=== PATIENT | male | born 1935 | race African-American/Black ===

== ENCOUNTER 2018-01-08 13:29 | Inpatient (IN) | payer MEDICARE ==
[~2018-01-08] VITALS: Ht 188 cm; Wt 91.2 kg
[2018-01-08] MEDS ORDERED: VANCOMYCIN 1GM/NS 250 ML 250 ML IV STA (14:43)
[2018-01-08] MEDS ORDERED: PIPER-TAZ 3.375 GM 50 ML IV STA (14:43)
--- NOTE | 2018-01-08 15:02 | Diagnostic Imaging Report ---
PROCEDURE:X-RAY RIGHT FOOT, COMPLETE COMPARISON:None. INDICATIONS:OSTEOMYLITIS FINDINGS: 3 views of the right foot (AP, lateral, and oblique) There has been amputation through the diaphysis of the fifth metatarsal. Mild regional osteopenia of the fourth metatarsal head. Punctate radiodensities overlying the proximal phalanx of the second digit may be related to old trauma. Degenerative changes of the midfoot. Extensive vascular calcifications. CONCLUSION: Status post amputation of the fifth digit. Mild regional osteopenia of the fourth metatarsal head raises suspicion for osteomyelitis. MRI of the forefoot (with and without contrast) may be used for confirmation. Dictated by: Mac Gandhi M.D. on 01/08/2018 at 15:03 Electronically approved by: Mac Gadnhi M.D. on 01/08/2018 at 15:03
[2018-01-08] MEDS ORDERED: NIFEDIPINE 10 MG CAP PO ONE (15:30)
[2018-01-08 16:06] LABS: BASOPHILS % 0.4 % (0.0-1.0); EOSINOPHILS # (AUTO) 0.2 (0.0-0.4); EOSINOPHILS % 2.1 % (0.0-6.0); HEMOGLOBIN 11.7 g/dL (14.0-18.0); LYMPHOCYTES # (AUTO) 2.1 (1.0-3.2); LYMPHOCYTES % 28.9 % (18.0-39.1); MEAN CORPUSCULAR HEMOGLOBIN 28.5 pg (28-32); MEAN CORPUSCULAR HGB CONC 34.4 g/dL (31-35); MEAN CORPUSCULAR VOLUME 82.7 fL (81-99); MONOCYTES # (AUTO) 1.1 (0.2-0.8); MONOCYTES % 14.7 % (4.4-11.3); NEUTROPHILS # (AUTO) 3.9 (2.1-6.9); NEUTROPHILS % 53.3 % (38.7-80.0); PLATELET COUNT 174 x10e3/uL (140-360); RED BLOOD COUNT 4.11 x10e6/uL (4.3-5.7); RED CELL DISTRIBUTION WIDTH 15.6 % (11.7-14.4)
--- NOTE | 2018-01-08 16:07 | Diagnostic Imaging Report ---
PROCEDURE: A single AP view of the chest. COMPARISON: None. INDICATIONS: FOOT WOUND, PAD FINDINGS: Lines/tubes: Electronic device projected over the heart may represent a loop recorder. Lungs: The lungs are well inflated and clear. There is no evidence of pneumonia or pulmonary edema. Pleura: There is no pleural effusion or pneumothorax. Heart and mediastinum: Normal heart size. Tortuous thoracic aorta. Bones: No acute bony abnormality. IMPRESSION: 1. No acute cardiopulmonary disease. Dictated by: Mac Gandhi M.D. on 01/08/2018 at 16:08 Electronically approved by: Mac Gandhi M.D. on 01/08/2018 at 16:08
[2018-01-08 16:17] LABS: INR 1.23; PROTHROMBIN TIME 14.6 seconds (11.9-14.5)
[2018-01-08 16:18] LABS: PARTIAL THROMBOPLASTIN TIME 40.7 seconds (23.8-35.5)
[2018-01-08] MEDS ORDERED: HYDRALAZINE HCL 20 MG/ML VIAL IV STA (16:24)
[2018-01-08 16:27] LABS: ALBUMIN 2.8 g/dL (3.5-5.0); ALBUMIN/GLOBULIN RATIO 0.5 (0.8-2.0); CALCIUM 10.2 mg/dL (8.4-10.2); CREATININE, SERUM 5.01 mg/dL (0.72-1.25); MAGNESIUM 2.8 MG/DL (1.3-2.1)
[2018-01-08] MEDS ORDERED: ALLOPURINOL100 MG PO (16:33)
[2018-01-08] MEDS ORDERED: PANTOPRAZOLE SO40 MG PO (16:33)
[2018-01-08] MEDS ORDERED: RENA-VITE TABL0.8 MG PO (16:33)
[2018-01-08] MEDS ORDERED: AMOX TR-K CLV1 EAC1 PO (16:33)
[2018-01-08] MEDS ORDERED: NORTHERA PO (16:33)
[2018-01-08] MEDS ORDERED: RENVELA800 MG PO (16:33)
[2018-01-08 16:34] LABS: CREATINE KINASE MB 1.7 ng/mL (0-5.0)
[2018-01-08] MEDS ORDERED: FAMOTIDINE 20 MG/2 ML VIAL IV SCH (17:00)
[2018-01-08] MEDS ORDERED: ONDANSETRON HCL 4 MG ORAL DISINTEGRATING TAB PO PRN (17:00)
[2018-01-08] MEDS ORDERED: MORPHINE SULFATE 2 MG/ML SYR IV PRN (17:00)
--- OUTSIDE RECORDS SUMMARY | 2018-01-08 17:18 | XMS REPORT ---
Author Author [facility] Address Unknown Phone Unavailable Care Team Providers Care Locomotive Engineer Electric Name Role Phone REBECA TRIVEDI PP Unavailable ROSLYN DAMON Unavailable Unavailable SAM FORBES Unavailable Unavailable Problems This patient has no known problems. Allergies, Adverse Reactions, Alerts This patient has no known allergies or adverse reactions. Medications This patient has no known medications. Results Test Description Test Time Test Comments Text Results Atomic Results Result Comments Comprehensive Metabolic Panel 2017-07-18 12:39:00 Sodium (test code=NA) 139 mmol/L 135-145 Potassium (test code=K) 4.9 mmol/L 3.5-5.1 Chloride (test code=CL) 101 mmol/L 98-105 Carbon Dioxide (test code=CO2) 29 mmol/L 22-29 Glucose (test code=GLU) 112 mg/dL 70-115 Blood Urea Nitrogen (test code=BUN) 64 mg/dL 8-23 Creatinine (test code=CREAT) 5.5 mg/dL 0.7-1.2 Calcium (test code=CA) 9.8 mg/dL 8.3-10.5 Prot Total (test code=TP) 7.2 g/dL 6.4-8.3 Albumin (test code=ALB) 3.5 g/dL 3.5-5.2 A/G Ratio (test code=AGRATIO) 0.9 Ratio Globulin (test code=GLOB) 3.7 2.9-3.1 Bili Total (test code=TBIL) 0.4 mg/dL 0.1-0.9 Alk Phos (test code=APHOS) 72 U/L 40-129 AST (test code=AST) 12 U/L 1-40 ALT (test code=ALT) 10 U/L 1-41 BUN/Creatinine Ratio (test code=BCRATIO) 11.6 Anion Gap (test code=AGAP) 9 mmol/L 7-16 Estimated GFR (test code=GFR) 13 mL/min/1.73m2 eGFR (estimated Glomerular Filtration Rate) is an estimated value,calculated from the patient's serum creatinine using the MDRD equation.It is NOT the patient's actual GFR. The eGFR provides a more clinicallyuseful measure of kidney disease than serum creatinine alone.This calculation takes sex and race into account, if the informationis provided. If the race is not provided, and the patient isAfrican- Peruvian, multiply by 1.212. If sex is not provided, and thepatient is female, multiply by 0.742. Results for patients <18 years ofage have not been validated by the MDRD study and should be interpretedwith caution.eGFR Result Interpretation:eGFR > or=60 is in the Normal RangeeGFR < 60 may mean kidney diseaseeGFR < 15 may mean kidney failureRanges recommended by the National Kidney Foundation,http://nkdep.nih.gov CBC with [id number] 12:10:00* Test Item Value Reference Range Comments WBC (test code=WBC) 4.9 K/cumm 4.4-10.5 RBC (test code=RBC) 4.10 M/cumm 4.10-5.70 Hemoglobin (test code=HGB) 11.8 gm/dL 13.4-17.4 Hematocrit (test code=HCT) 35.6 % 38.7-52.0 MCV (test code=MCV) 87.0 fL 80-100 MCH (test code=MCH) 28.9 pg 27.0-32.5 MCHC (test code=MCHC) 33.2 g/dL 32.0-37.5 RDW (test code=RDW) 15.8 % 11.5-14.5 Platelet Count (test code=PLTCT) 122 K/cumm 140-440 MPV (test code=MPV) 8.1 fL Diff Method (test code=DIFFM) Auto Neutrophil (test code=NEUT) 51.2 % 36-70 Lymphocyte (test code=LYMPH) 38.4 % 12-44 Monocyte (test code=MONO) 7.8 % 0-11 Eosinophil (test code=EOS) 2.1 % 0-7 Basophil (test code=BASO) 0.5 % 0-2 Neutro Abs (test code=ANEUT) 2.5 K/cumm 1.6-7.4 Lymph Abs (test code=ALYMPH) 1.9 K/cumm 0.5-4.6 Sumner Abs (test code=AMONO) 0.4 K/cumm 0.0-1.2 Eos Abs (test code=AEOS) 0.10 K/cumm 0.00-0.74 Baso Abs (test code=ABASO) 0.0 K/cumm 0.00-0.21 CHEST SINGLE (PORTABLE) [place] [address] Patient Name: LATONIA BLANCHARD MR #: [id number] : 1935 Age/Sex: 82/M Req #: [id number] Adm Physician: Ordered by: ROSLYN DAMON MD Report #: [id number] Location: ER Room/Bed: Procedure: [id number] DX/CHEST SINGLE (PORTABLE) Exam Date: 01/08/18 Exam Time: 1505 REPORT STATUS: Signed PROCEDURE: A single AP view of the chest. COMPARISON: None. INDICATIONS: FOOT WOUND, PAD FINDINGS: Lines/tubes: Electronic device projected over the heart may represent a loop recorder. Lungs: The lungs are well inflated and clear. There is no evidence of pneumonia or pulmonary edema. Pleura: There is no pleural effusion or pneumothorax. Heart and mediastinum: Normal heart size. Tortuous thoracic aorta. Bones: No acute bony abnormality. IMPRESSION: 1. No acute cardiopulmonary disease. Dictated by: Herb Gandhi M.D. on 01/08/2018 at 16:08 Electronically approved by: Herb Gandhi M.D. on 01/08/2018 at 16:08 Dictated By: HERB GANDHI MD 1608 Transcribed By: SAMIRA on 01/08/18 1608 COPY TO: ROSLYN DAMON MD FOOT RIGHT COMPLETE [facility] [address] [address] Patient Name: LATONIA BLANCHARD MR #: [id number] : 1935 Age/Sex: 82/M Req #: [id number] Adm Physician: Ordered by: ROSLYN DAMON MD Report #: [id number] Location: ER Room/Bed: Procedure: [id number] DX/FOOT RIGHT COMPLETE Exam Date: Exam Time: REPORT STATUS: Signed PROCEDURE: X-RAY RIGHT FOOT, COMPLETE COMPARISON: None. INDICATIONS: OSTEOMYLITIS FINDINGS: 3 views of the right foot (AP, lateral, and oblique) There has been amputation through the diaphysis of the fifth metatarsal. Mild regional osteopenia of the fourth metatarsal head. Punctate radiodensities overlying the proximal phalanx of the second digit may be related to old trauma. Degenerative changes of the midfoot. Extensive vascular calcifications. CONCLUSION: Status post amputation of the fifth digit. Mild regional osteopenia of the fourth metatarsal head raises suspicion for osteomyelitis. MRI of the forefoot ( with and without contrast) may be used for confirmation. Dictated by: Herb Gandhi M.D. on 01/08/2018 at 15:03 Electronically approved by: Herb Gandhi M.D. on 01/08/2018 at 15:03 Dictated By: HERB GANDHI MD 1503 Transcribed By: SAMIRA on 01/08/18 1503 COPY TO: ROSLYN DAMON MD
[2018-01-08] MEDS: CEFEPIME HCL 1 GM VIAL IV SCH (17:46)
[2018-01-08 18:03] LABS: CLARITY,URINE CLEAR (CLEAR); COLOR,URINE YELLOW (YELLOW); LEUKOCYTE ESTERASE ,URINE NEGATIVE (NEGATIVE); NITRITE,URINE NEGATIVE (NEGATIVE)
[2018-01-08 18:04] LABS: BILIRUBIN,URINE NEGATIVE (NEGATIVE); KETONES,URINE NEGATIVE (NEGATIVE); PROTEIN,URINE DIPSTICK 2+ (NEGATIVE); URINE UROBILINOGEN 0.2 mg/dL (0.2 - 1)
[2018-01-08 18:11] LABS: EPITHELIAL CELLS,URINE FEW /LPF; MUCUS,URINE MANY (RARE); RBC,URINE 0-5 /HPF (0-5); WBC,URINE (MAN) 0-5 /HPF (0-5)
--- NOTE | 2018-01-08 18:49 | Consultation ---
DATE OF CONSULTATION: January 08, 2018 CARDIOLOGY CONSULTATION REQUESTING PHYSICIAN: Dr. Mills. REASON FOR CONSULTATION: Peripheral arterial disease. HISTORY OF PRESENT ILLNESS: This is an 82-year-old man with history of hypertension and end-stage renal disease on hemodialysis, who presents with complaints of a nonhealing right foot wound. The patient reports he has had a wound on his right foot for the last 2 months that has been progressively worsening. He was admitted to [facility] recently and was discharged approximately 1 week ago. When he followed up with Dr. Aldrich, he was instructed to present to [facility] for [facility]. The patient denies any history of peripheral arterial disease or prior peripheral evaluation. He denies any chest pain or shortness of breath. However, he does endorse he has what he describes as dizzy spells associated with nausea when he stands up and occasional palpitations. REVIEW OF SYSTEMS: Negative except as per HPI. PAST MEDICAL HISTORY 1. Hypertension. 2. End-stage renal disease on hemodialysis. PAST SURGICAL HISTORY 1. Toe amputations. 2. Status post ILR. ALLERGIES: NO KNOWN DRUG ALLERGIES. MEDICATIONS: Please see EMR. SOCIAL HISTORY: Denies tobacco, alcohol or illicit drugs. FAMILY HISTORY: Noncontributory. PHYSICAL EXAMINATION VITAL SIGNS: Temperature 98.8 degrees, pulse 71, respiratory rate 18, blood pressure 127/83, oxygen saturation 99% on room air. GENERAL: Elderly man in no acute distress, well developed, well nourished. HEENT: Normocephalic, atraumatic. Pupils equal, no scleral icterus. NECK: Supple. No thyromegaly or cervical lymphadenopathy, no carotid bruits. LUNGS: Clear to auscultation bilaterally. No wheezes or crackles. CARDIOVASCULAR: Normal rate, regular rhythm. No murmur. Normal S1 and S2. ABDOMEN: Soft, nontender. EXTREMITIES: No edema. Right foot with dressing intact. NEURO: Nonfocal exam. LABS: WBC 7.27, hemoglobin 11.7, hematocrit 34, platelets 174. Sodium 135, potassium 4, chloride 94, CO2 30, BUN 38, creatinine 5.01. BNP 142. Troponin 0.030. CHEST X-RAY: No acute cardiopulmonary disease. FOOT X-RAY: Status post amputation of the 5th digit. Mild regional osteopenia of the 4th metatarsal head raises suspicion for osteomyelitis. MRI of the forefoot with and without contrast may be used for confirmation. EKG: Normal sinus rhythm with nonspecific intraventricular block. Nonspecific T-wave abnormality. IMPRESSION 1. Right foot wound with suspected osteomyelitis. 2. End-stage renal disease on hemodialysis. 3. Hypertension. 4. Suspect peripheral arterial disease. RECOMMENDATIONS: Obtain bilateral lower extremity arterial Dopplers and echocardiogram. IV antibiotics per Infectious Disease. Wound care per Podiatry. We will check an echocardiogram given patient's elevated BNP and abnormal EKG. Thank you for this consult. We will continue to follow. Job#: [id number] EV
--- NOTE | 2018-01-08 18:56 | Consultation ---
DATE OF CONSULTATION: January 08, 2018 REQUESTING PHYSICIAN: Dr. Jarrell REASON FOR CONSULTATION: ESRD. Thank you for allowing us to participate in Mr. Mayen's care. This is an 82-year-old male that dialyzes Thursday, and Thursday for end-stage renal disease via left upper extremity AV fistula. His doctor does not come here. He here. He has been battling a foot wound and needs to be checked for peripheral vascular disease since he is brought here. He is still on antibiotics at home. Lungs were clear on chest x-ray. Denies any dyspnea or uremic symptoms. Foot x-ray is suspicious for osteomyelitis on the right side. He has had recent toe amputation at [place], and subsequently came here for further evaluation after going home. Currently, denying fevers, chills, nausea, or vomiting. PAST HISTORY: ESRD, hypertension, secondary hyperparathyroidism, presumed anemia, CKD, peripheral vascular disease, toe ulcer. MEDICATIONS: Please see list. FAMILY HISTORY: Hypertension. SOCIAL HISTORY: Does not smoke or abuse alcohol. REVIEW OF SYSTEMS CONSTITUTIONAL: No fever or chills. VASCULAR: Leg swelling. SKIN: Redness on the foot. NEURO: Denying headache or seizures. CARDIAC: Denying angina or syncope. RESPIRATORY: Denying cough or hemoptysis. The rest of the review is negative. PHYSICAL EXAMINATION GENERAL: Laying in bed in no distress. VITALS: Temperature is 98.8, pulse 93, blood pressure 127/80. HEENT: Grossly atraumatic. NECK: No JVD. CHEST: Clear. Bilateral breath sounds are equal. CV: S4 is present. EXTREMITIES: Right leg in bandage. SKIN: Redness on the right leg. NEURO: Appears to be alert and appropriate. Speech is normal. LABS: Hemoglobin 11.7. Potassium is 4, serum CO2 30, creatinine 5, BUN 38, albumin is 2.8. ASSESSMENT 1. End-stage renal disease. 2. Hypertension. 3. Nephrosclerosis: Volume status reasonable. 4. Toe ulcer: Apparently, not responding to outpatient therapy. 5. Foot cellulitis with osteomyelitis. PLAN: Agree with antibiotics that were started in the ER. Restart his Sevelamer. Will put back on dialysis schedule tomorrow. Will follow along. Job#: [id number] RI
[2018-01-08] MEDS ORDERED: HYDRALAZINE HCL 20 MG/ML VIAL IV PRN (19:15)
[2018-01-08] MEDS: CARVEDILOL 3.125 MG TAB PO SCH (19:30)
[2018-01-08] MEDS: NIFEDIPINE CR 30 MG TAB PO SCH (20:37)
[2018-01-08] MEDS: HEPARIN SOD (PORCINE) 5,000 UNIT/ML VIAL SC SCH (20:52)
[2018-01-08] MEDS: NIFEDIPINE 10 MG CAP PO PRN (23:05)
[2018-01-09] VITALS (7 sets, daily range): BP systolic 35–158; BP diastolic 67–82
[2018-01-09 06:10] LABS: BASOPHILS % 0.4 % (0.0-1.0); EOSINOPHILS # (AUTO) 0.2 (0.0-0.4); HEMOGLOBIN 10.4 g/dL (14.0-18.0); LYMPHOCYTES # (AUTO) 1.2 (1.0-3.2); MEAN CORPUSCULAR HEMOGLOBIN 28.3 pg (28-32); MEAN CORPUSCULAR HGB CONC 34.7 g/dL (31-35); MEAN CORPUSCULAR VOLUME 81.7 fL (81-99); MONOCYTES # (AUTO) 0.8 (0.2-0.8); NEUTROPHILS # (AUTO) 2.8 (2.1-6.9); NEUTROPHILS % 56.2 % (38.7-80.0); PLATELET COUNT 156 x10e3/uL (140-360); RED BLOOD COUNT 3.67 x10e6/uL (4.3-5.7); RED CELL DISTRIBUTION WIDTH 15.3 % (11.7-14.4)
[2018-01-09 06:28] LABS: ALBUMIN 2.3 g/dL (3.5-5.0); ALBUMIN/GLOBULIN RATIO 0.5 (0.8-2.0); CALCIUM 9.5 mg/dL (8.4-10.2); CHOL/HDL RATIO 2.4 (3.9-4.7); CREATININE, SERUM 5.1 mg/dL (0.72-1.25)
[2018-01-09] MEDS: SEVELAMER CARBONATE 800 MG TAB PO SCH ×3 (08:00→16:53)
[2018-01-09] MEDS: CARVEDILOL 3.125 MG TAB PO SCH ×2 (08:00→16:50)
[2018-01-09] MEDS: ASPIRIN 325 MG TAB PO SCH (08:00)
[2018-01-09] MEDS: HEPARIN SOD (PORCINE) 5,000 UNIT/ML VIAL SC SCH ×2 (09:00→20:19)
[2018-01-09] MEDS ORDERED: ALBUMIN HUMAN 12.5GM / 50ML IV PRN (11:00)
--- NOTE | 2018-01-09 15:36 | Progress Note ---
DATE: January 09, 2018 CARDIOLOGY PROGRESS NOTE SUBJECTIVE: Patient denies chest pain or shortness of breath. OBJECTIVE VITAL SIGNS: Temperature 96.4 degrees, pulse 58, respiratory rate 19, blood pressure 115/67, oxygen saturation 99% on room air. GENERAL: Awake, alert, in no acute distress. LUNGS: Clear to auscultation bilaterally. No wheezes or crackles. CARDIOVASCULAR: Normal rate, regular rhythm. No murmur. Normal S1 and S2. ABDOMEN: Soft, nontender. EXTREMITIES: No edema. Right foot with open wound on the plantar surface near the right 5th toe. CARDIAC MEDICATIONS 1. Aspirin 81 mg p.o. daily. 2. Carvedilol 3.125 mg p.o. b.i.d. 3. Nifedipine 10 mg p.o. q.8 h. as needed. 4. Nifedipine 30 mg p.o. nightly. LABS: WBCs 4.95, hemoglobin 10.4, hematocrit 30, platelets 156. Sodium 138, potassium 4, chloride 99, CO2 29, BUN 43, creatinine 5.1. BNP 142. TELEMETRY: Normal sinus rhythm. IMPRESSION 1. Right foot wound with suspected osteomyelitis. 2. End-stage renal disease, on hemodialysis. 3. Hypertension. 4. Peripheral arterial disease suggested by noninvasive Doppler evaluation. RECOMMENDATIONS: Bilateral lower extremity arterial Doppler suggested infrapopliteal disease with occlusion of the right posterior tibial artery. Planned for a peripheral angiogram on Thursday. IV antibiotics per Infectious Disease. Wound care per Podiatry. Thank you for this consult. We will continue to follow. Job#: [id number] EV
--- NOTE | 2018-01-09 16:34 | Consultation ---
DATE OF CONSULTATION: January 09, 2018 REASON FOR CONSULTATION: Osteomyelitis of his right foot, status post amputation of the 5th toe. HISTORY OF PRESENT ILLNESS: This patient is a very pleasant, 82-year-old gentleman who has history of hypertension, history of end-stage renal disease on hemodialysis. He is having a problem with his foot. He underwent amputation of his 5th toe by Dr. Aldrich, probably a week ago. The patient was in [place]. Apparently, he underwent amputation and he was discharged home with oral antibiotic. The patient also has history of end-stage renal disease on hemodialysis and hypertension. He is coming to the emergency room with wound not healing and drainage from the wound. I was contacted by the ER physician. The patient was started on antibiotic. Infectious disease was consulted. The patient is currently lying in bed at the present time. He is telling me he thinks he had decent circulation, but he does know exactly. At present time, the patient is lying in bed comfortably. Denies any symptoms, except there is drainage from his wound. PAST MEDICAL HISTORY: Hypertension, end-stage renal disease on hemodialysis. PAST SURGICAL HISTORY: Amputation of the 5th toe on the right. Status post ILR. ALLERGIES: NKA. SOCIAL HISTORY: There is no smoking, drug abuse or alcohol abuse. FAMILY HISTORY: Otherwise hypertension and diabetes. REVIEW OF SYSTEMS: HEENT: Negative. PULMONARY: Negative. CARDIAC: Negative. : Negative. SKIN: There is no other rash. JOINTS: Negative. LABORATORY DATA: Reviewed. White count 4.95, hemoglobin 10.4, platelets 156,000, sodium 138, potassium 4.0, creatinine 5.1. BNP 142. PHYSICAL EXAMINATION: GENERAL: He is currently alert and oriented and does not seem to be in acute distress. VITAL SIGNS: Stable, currently afebrile. HEENT: Not icteric. Normocephalic. PERRLA. NECK: Supple. No JVD. No lymphadenopathy. No thyromegaly. CHEST: Clear bilaterally. HEART: S1 and S2, no S3, S4 or murmur. ABDOMEN: Soft. Bowel sounds present. No tenderness. EXTREMITIES: No edema. The right foot, the wound dehisced. There is some drainage on the dressing. The pulse was very weak. IMPRESSION: 1. Status post amputation of the right 5th toe, not healing, dehiscence. I am concerned about peripheral vascular disease. I am concerned about osteomyelitis. Will put him on vancomycin. Will put him on cefepime. Will adjust for his kidney function. Vascular workup is in progress. MRI was ordered to be done without contrast. 2. End-stage renal disease. 3. Will follow with you. Job#: [id number]
[2018-01-09] MEDS: CEFEPIME HCL 1 GM VIAL IV SCH (18:43)
[2018-01-09] MEDS: NIFEDIPINE CR 30 MG TAB PO SCH (20:18)
[2018-01-10] VITALS: BP 137/72
[2018-01-10 06:02] VITALS: BP 115/69
[2018-01-10 08:00] VITALS: BP 120/64
[2018-01-10] MEDS: HEPARIN SOD (PORCINE) 5,000 UNIT/ML VIAL SC SCH ×2 (08:48→20:56)
[2018-01-10] MEDS: SEVELAMER CARBONATE 800 MG TAB PO SCH ×3 (08:48→16:57)
[2018-01-10] MEDS: CARVEDILOL 3.125 MG TAB PO SCH ×2 (08:48→16:57)
[2018-01-10] MEDS: ASPIRIN 325 MG TAB PO SCH (08:48)
[2018-01-10 12:00] VITALS: BP 118/71
[2018-01-10 16:00] VITALS: BP 176/82
[2018-01-10] MEDS: CEFEPIME HCL 1 GM VIAL IV SCH (16:56)
[2018-01-10] MEDS: VANCOMYCIN 1GM/NS 250 ML 250 ML IV SCH (17:47)
--- NOTE | 2018-01-10 18:08 | Progress Note ---
DATE: January 10, 2018 CARDIOLOGY PROGRESS NOTE SUBJECTIVE: Patient denies chest pain or shortness of breath. OBJECTIVE VITAL SIGNS: Temperature 96.6 degrees, pulse 54, respiratory rate 19, blood pressure 176/82, oxygen saturation 100% on room air. GENERAL: Awake, alert, in no acute distress. LUNGS: Clear to auscultation bilaterally. No wheezes or crackles. CARDIOVASCULAR: Normal rate, regular rhythm. No murmur. Normal S1 and S2. ABDOMEN: Soft, nontender. EXTREMITIES: No edema. Right foot with dressing intact. CARDIAC MEDICATIONS 1. Carvedilol 3.125 mg p.o. b.i.d. 2. Aspirin 81 mg p.o. daily. 3. Nifedipine 30 mg p.o. nightly. LABS: None today. TELEMETRY: Normal sinus rhythm. IMPRESSION 1. Right foot wound with suspected osteomyelitis. 2. End-stage renal disease, on hemodialysis. 3. Hypertension. 4. Peripheral arterial disease suggested by noninvasive Doppler evaluation. RECOMMENDATIONS: Bilateral lower extremity Doppler suggested infrapopliteal disease with occlusion of the right posterior tibial artery. Make the patient n.p.o. after midnight. Plan for peripheral angiogram tomorrow afternoon. IV antibiotics per infectious disease. Wound care per podiatry. Thank you for this consult. We will continue to follow. Job#: [id number]
[2018-01-10 20:16] VITALS: BP 117/77
[2018-01-10] MEDS: NIFEDIPINE CR 30 MG TAB PO SCH (23:00)
[2018-01-11] VITALS (12 sets, daily range): BP systolic 104–167; BP diastolic 67–98
[2018-01-11] MEDS: SEVELAMER CARBONATE 800 MG TAB PO SCH ×3 (08:00→17:00)
[2018-01-11] MEDS: ASPIRIN 325 MG TAB PO SCH (09:00)
[2018-01-11] MEDS: CARVEDILOL 3.125 MG TAB PO SCH ×2 (09:00→17:00)
[2018-01-11] MEDS: HEPARIN SOD (PORCINE) 5,000 UNIT/ML VIAL SC SCH ×2 (09:00→21:40)
[2018-01-11] MEDS ORDERED: FENTANYL CITRATE/PF 100MCG/2 ML INJ ONE (14:32)
[2018-01-11] MEDS ORDERED: MIDAZOLAM HCL 2 MG/2 ML VIAL ONE (14:32)
[2018-01-11] MEDS ORDERED: IOPAMIDOL 300MG/ML 100 ML INFUS..BTL IV ONE (14:33)
[2018-01-11] MEDS ORDERED: HEPARIN SOD/SOD CHLORIDE 2,000 ML ONE (14:33)
[2018-01-11] MEDS ORDERED: LIDOCAINE HCL 2% LOCAL 20 ML VIAL ONE (14:33)
--- NOTE | 2018-01-11 15:15 | Progress Note ---
DATE: January 11, 2018 CARDIOLOGY PROGRESS NOTE SUBJECTIVE: Patient denies chest pain or shortness of breath. He is n.p.o. for a peripheral angiogram today. OBJECTIVE VITAL SIGNS: Temperature 97.8 degrees, pulse 63, respiratory rate 20, blood pressure 147/95, oxygen saturation 100% on room air. GENERAL: Awake, alert, in no acute distress. LUNGS: Clear to auscultation bilaterally. No wheezes or crackles. CARDIOVASCULAR: Normal rate, regular rhythm. No murmur. Normal S1 and S2. ABDOMEN: Soft, nontender. EXTREMITIES: No edema. Right foot with dressing intact. CARDIAC MEDICATIONS 1. Nifedipine 30 mg p.o. nightly. 2. Aspirin 81 mg p.o. daily. 3. Carvedilol 3.125 mg p.o. b.i.d. LABS: None today. TELEMETRY: Normal sinus rhythm. IMPRESSION 1. Right foot wound with suspected osteomyelitis. 2. End-stage renal disease, on hemodialysis. 3. Peripheral arterial disease suggested by noninvasive Doppler evaluation. 4. Hypertension. RECOMMENDATIONS: Bilateral lower extremity Doppler suggested infrapopliteal disease with occlusion of the right posterior tibial artery. Plan for peripheral angiogram today. IV antibiotics per infectious disease. Wound care per podiatry. Thank you for this consult. We will continue to follow. Job#: [id number]
[2018-01-11] MEDS ORDERED: HEPARIN SOD (PORCINE) 1000 UNIT/ML 30ML ONE (15:27)
[2018-01-11] MEDS ORDERED: NITROGLYCERIN/D5W 200 MCG/ML 250 ML ONE (15:35)
[2018-01-11] MEDS ORDERED: SODIUM CHLORIDE 0.9% 1000ML 1,000 ML ONE ×2 (15:40→15:50)
[2018-01-11] MEDS ORDERED: VERAPAMIL HCL 2.5 MG/ML 2 ML VIAL ONE (15:40)
[2018-01-11] MEDS ORDERED: PRASUGREL 10 MG TAB ONE (16:08)
[2018-01-11] MEDS: CEFEPIME HCL 1 GM VIAL IV SCH (17:00)
[2018-01-11] MEDS ORDERED: MORPHINE SULFATE 4 MG/ML SYR IV PRN (17:15)
[2018-01-11] MEDS ORDERED: MORPHINE SULFATE 2 MG/ML SYR IV PRN (17:30)
--- NOTE | 2018-01-11 18:06 | Operative Report ---
DATE OF PROCEDURE: January 11, 2018 INDICATIONS: 1. Peripheral arterial disease. 2. Gangrene of the right lower extremity. PROCEDURES PERFORMED: 1. Abdominal aortogram. 2. Bilateral lower extremity runoff studies to both lower extremities. 3. Third-order catheter placement from the left femoral artery to the right superficial femoral artery. 4. Additional 3rd-order catheter placement from the left femoral artery to the right peroneal artery. 5. Atherectomy of the right peroneal artery. 6. Secondary thrombectomy of the right peroneal artery. 7. Deployment of left groin Vascade closure device. COMPLICATIONS: None. RECOMMENDATIONS: Dual antiplatelet therapy for at least 3 months. Access obtained in left femoral artery. A 6-Ecuadorean sheath was placed. Abdominal aortogram demonstrated no disease in abdominal aorta and iliacs bilaterally. Excellent flow. Proximal femoral arteries are widely patent. Catheter was then advanced from the left femoral artery to the right superficial femoral artery which was widely patent. Popliteal artery widely patent. Anterior and posterior tibial arteries occluded the entire portion. The peroneal artery is occluded distally with reconstitution and formation of feeble pedal vessels and pedal vessels could not be seen. The catheter was then advanced from the left femoral artery to the right peroneal artery (additional 3rd-order catheter placement). The peroneal vessel was dominant after the chronic occlusion and filled via the natural calcaneal branch of the posterior tibial. A decision was made to intervene on the right peroneal artery. The patient received 8000 units of intravenous heparin. The sheath was exchanged to a 45 cm 6-Ecuadorean sheath and advanced from the left femoral artery to the right superficial femoral artery. Orbital atherectomy of the chronic occlusion of the right peroneal artery was performed using a 1.25 mm crown. Large amounts of visible thrombus for which manual aspiration secondary thrombectomy was needed after atherectomy. Balloon angioplasty with a 2.5 mm balloon with excellent end result and excellent formation of the plantar vessels. The patient tolerated the procedure without complications. Left groin repaired using Vascade. The patient transferred to the floor in stable condition. Job#: [id number]
[2018-01-11] MEDS: NIFEDIPINE CR 30 MG TAB PO SCH (21:35)
[2018-01-12] VITALS (8 sets, daily range): BP systolic 115–167; BP diastolic 68–79
[2018-01-12] MEDS: NIFEDIPINE 10 MG CAP PO PRN (01:00)
[2018-01-12 06:13] LABS: BASOPHILS % 0.4 % (0.0-1.0); EOSINOPHILS # (AUTO) 0.2 (0.0-0.4); EOSINOPHILS % 3.2 % (0.0-6.0); HEMATOCRIT 30.8 % (38.2-49.6); HEMOGLOBIN 10.7 g/dL (14.0-18.0); LYMPHOCYTES # (AUTO) 1.5 (1.0-3.2); LYMPHOCYTES % 27.1 % (18.0-39.1); MEAN CORPUSCULAR HEMOGLOBIN 28.2 pg (28-32); MEAN CORPUSCULAR HGB CONC 34.7 g/dL (31-35); MEAN CORPUSCULAR VOLUME 81.3 fL (81-99); MONOCYTES # (AUTO) 0.7 (0.2-0.8); MONOCYTES % 12.1 % (4.4-11.3); NEUTROPHILS # (AUTO) 3.1 (2.1-6.9); NEUTROPHILS % 56.6 % (38.7-80.0); PLATELET COUNT 145 x10e3/uL (140-360); RED BLOOD COUNT 3.79 x10e6/uL (4.3-5.7); RED CELL DISTRIBUTION WIDTH 14.8 % (11.7-14.4)
[2018-01-12 06:40] LABS: CALCIUM 9.6 mg/dL (8.4-10.2); CREATININE, SERUM 4.95 mg/dL (0.72-1.25)
[2018-01-12] MEDS: SEVELAMER CARBONATE 800 MG TAB PO SCH ×3 (08:00→16:06)
--- NOTE | 2018-01-12 08:18 | Progress Note ---
DATE: January 12, 2018 SUBJECTIVE: This is an 82-year-old male with a past medical history of hypertension and end-stage renal disease, on hemodialysis, who was admitted for a worsening wound to his right foot and angioplasty per Dr. Villalpando. He is postop day 1 angioplasty to the right lower extremity. He relates to some pain to the posterior aspect of the right heel. Denies nausea, vomiting, fever, chills, chest pain, or shortness of breath. OBJECTIVE VITAL SIGNS: Today, temperature 97.9, heart rate 64, respiratory rate 18, blood pressure 139/76, pulse ox 98% on room air. LOWER EXTREMITY PHYSICAL EXAMINATION VASCULAR: Dorsalis pedis and posterior tibial pulses are nonpalpable to bilateral lower extremities. The right foot is warm to touch. There is delayed capillary refill time. NEUROLOGICAL: Sensation is diminished to light touch bilateral. MUSCULOSKELETAL: Mild pain on palpation is noted to the patient's right heel. Partial 5th ray resection is noted to the patient's right foot. DERMATOLOGICAL: Dehisced surgical site is noted to the patient's right 5th metatarsal resection site. There is superficial scab tissue with approximately 2 cm x 0.5 cm fibrotic tissue. There is negative erythema, edema or drainage at this time. A superficial early decubitus blister is noted of the posterior aspect of the patient's right heel. LABS: White blood cell count is 5.3, hemoglobin 10.7, hematocrit 30.8, and platelet count is 145,000. ASSESSMENT 1. Peripheral vascular disease: Status post angioplasty. 2. Two weeks status post right partial 5th ray resection for osteomyelitis and gangrene. 3. End-stage renal disease, on hemodialysis. PLAN: The patient was seen and evaluated. We discussed condition and treatment options with the patient in detail. At this time, the dressing was changed with Betadine wet-to-dry. Will continue local wound care. The patient is status post angioplasty, and will attempt wound care after angioplasty to determine if wound will heal. If progress does not continue, will proceed with a more proximal amputation as needed. The podiatry service will continue to monitor. Job#: [id number] [place]
[2018-01-12] MEDS: HEPARIN SOD (PORCINE) 5,000 UNIT/ML VIAL SC SCH ×2 (09:00→20:50)
[2018-01-12] MEDS: CARVEDILOL 3.125 MG TAB PO SCH ×2 (09:00→17:00)
[2018-01-12] MEDS: CLOPIDOGREL BISULFATE 75 MG TAB PO SCH (09:00)
[2018-01-12] MEDS: ASPIRIN 81 MG ENTERIC COATED PO SCH (09:00)
[2018-01-12] MEDS ORDERED: MANNITOL 25% 12.5GM/50 ML VIAL IV PRN (09:45)
[2018-01-12] MEDS ORDERED: SODIUM CHLORIDE 0.9% 250ML 500 ML IV PRN (09:45)
[2018-01-12] MEDS ORDERED: ALBUMIN HUMAN 12.5GM / 50ML IV PRN (09:45)
[2018-01-12] MEDS ORDERED: SODIUM CHLORIDE 0.9% 1000ML 2,000 ML IV PRN (09:45)
--- NOTE | 2018-01-12 12:42 | Progress Note ---
DATE: January 12, 2018 CARDIOLOGY PROGRESS NOTE SUBJECTIVE: Patient denies chest pain or shortness of breath. He complains of constipation. OBJECTIVE VITAL SIGNS: Temperature 98.2 degrees, pulse 65, respiratory rate 16, blood pressure 123/71, oxygen saturation 98% on room air. GENERAL: Awake, alert, in no acute distress. LUNGS: Clear to auscultation bilaterally. No wheezes or crackles. CARDIOVASCULAR: Normal rate, regular rhythm. No murmur. Normal S1 and S2. ABDOMEN: Soft, nontender. EXTREMITIES: No edema. Right foot with dressing intact. CARDIAC MEDICATIONS 1. Plavix 75 mg p.o. daily. 2. Aspirin 81 mg p.o. daily. 3. Carvedilol 3.125 mg p.o. b.i.d. 4. Nifedipine 30 mg p.o. nightly. LABS: WBC 5.39, hemoglobin 10.7, hematocrit 30.8, platelets 145. Sodium 136, potassium 5, chloride 104, CO2 23, BUN 55, creatinine 4.95. TELEMETRY: Normal sinus rhythm. IMPRESSION 1. Right foot wound with suspected osteomyelitis. 2. End-stage renal disease on hemodialysis. 3. Peripheral arterial disease with occlusion of the anterior and posterior tibial arteries as well as the peroneal, status post atherectomy and secondary thrombectomy of the right peroneal artery with resulting flow to the plantar vessels. 4. Hypertension. RECOMMENDATIONS: Patient is status post atherectomy and secondary thrombectomy of the right peroneal artery with orthodox of flow to the plantar vessels. Continue current cardiac medications. IV antibiotics per Infectious Disease. Wound care per Podiatry. Monitor wound for healing. Thank you for this consult. We will continue to follow. Job#: [id number] EV
[2018-01-12] MEDS: VANCOMYCIN 1GM/NS 250 ML 250 ML IV SCH (14:00)
[2018-01-12] MEDS: CEFEPIME HCL 1 GM VIAL IV SCH (16:07)
[2018-01-12] MEDS: NIFEDIPINE CR 30 MG TAB PO SCH (20:48)
[2018-01-13 00:35] VITALS: BP 133/81
[2018-01-13 05:03] VITALS: BP 130/72
[2018-01-13 08:00] VITALS: BP 138/73
[2018-01-13] MEDS: ASPIRIN 81 MG ENTERIC COATED PO SCH (08:16)
[2018-01-13] MEDS: SEVELAMER CARBONATE 800 MG TAB PO SCH ×2 (08:16→12:15)
[2018-01-13] MEDS: CARVEDILOL 3.125 MG TAB PO SCH (08:17)
[2018-01-13] MEDS: CLOPIDOGREL BISULFATE 75 MG TAB PO SCH (08:18)
[2018-01-13] MEDS: HEPARIN SOD (PORCINE) 5,000 UNIT/ML VIAL SC SCH (08:18)
--- NOTE | 2018-01-13 09:58 | Progress Note ---
DATE: January 13, 2018 SUBJECTIVE: This is an 82-year-old male with a past medical history of hypertension and end-stage renal disease, on hemodialysis, who is being seen for a right foot wound. He is 2 days postoperative angioplasty to the patient's right lower extremity. He relates to some pain to the heel, which is resolving. Denies any nausea, vomiting, fever, chills, chest pain, or shortness of breath. No new acute events overnight. PHYSICAL EXAMINATION VITAL SIGNS: Temperature today is 98, heart rate 66, respiratory rate 18, blood pressure 130/72, pulse ox 97% on room air. LOWER EXTREMITY PHYSICAL EXAMINATION VASCULAR: Dorsalis pedis and posterior tibial pulses remain nonpalpable to bilateral lower extremities. The foot is warm to the touch. There is delayed capillary refill time. NEUROLOGICAL: Sensation is diminished to light touch bilateral. MUSCULOSKELETAL: Mild pain on palpation is noted to the patient's right heel. Partial 5th ray resection is noted. DERMATOLOGICAL: Dehisced surgical site is noted to the patient's right 5th metatarsal amputation site. Superficial scab tissue with fibrotic wound base is noted approximately 2 cm x 0.5 cm. Negative erythema, edema or drainage noted at this time. Superficial early decubitus blister is noted in the posterior aspect of the patient's right heel, which is stable. LABS: White blood cell count is 5.3, hemoglobin 10.7, hematocrit 30.8, and platelet count is 145,000. Sed rate is 87. ASSESSMENT 1. Peripheral vascular disease: Two days status post angioplasty, 2 weeks status post right partial 5th ray resection for osteomyelitis and gangrene. 2. End-stage renal disease, on hemodialysis. The patient was seen and evaluated. Discussed the condition and treatment options with the patient in detail again. At this time, the dressing was changed with Betadine wet-to-dry, and will continue local wound care as such. The patient is status post angioplasty per Dr. Villalpando. Will continue to monitor wound healing to determine if more proximal amputation is needed. The patient's prognosis is guarded, and will likely need further amputation down the line. If wound does not heal, the patient is to be discharged to home today with home health for local wound care. The patient is going to be receiving vancomycin through dialysis and p.o. Cipro per the sensitivities. The patient is to follow up in the office within 3-5 days for further evaluation. Job#: [id number] RI
[2018-01-13] MEDS ORDERED: CIPRO500 MG PO (10:59)
[2018-01-13] MEDS ORDERED: COREG3.125 MG PO (11:00)
[2018-01-13] MEDS ORDERED: PLAVIX75 MG PO (11:00)
[2018-01-13] MEDS ORDERED: ASPIR 8181 MG PO (11:00)
[2018-01-13] MEDS ORDERED: NIFEDIPINE ER30 M1 PO (11:01)
[2018-01-13 12:00] VITALS: BP 150/96
--- NOTE | 2018-01-13 12:44 | Discharge Summary ---
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 SECONDARY DIAGNOSES 1. Possible right 4th toe osteomyelitis per x-ray. 2. End-stage renal disease. 3. Hypertension. 4. Possible atrial fibrillation. 5. Peripheral vascular disease. CONSULTANTS 1. Dr. Villalpando, cardiovascular. 2. Dr. Aldrich, podiatry. 3. Dr. Madsen, nephrology. PROCEDURES/STUDIES PERFORMED: Angioplasty. HISTORY: Per [facility] HOSPITAL COURSE: The patient was admitted. The patient was kept on IV vancomycin after dialysis and also renal-dosed cefepime. Angioplasty was done successfully by Dr. Villalpando. Wound culture shows morganella, klebsiella and enterococcus. I have discussed this case at length with Dr. Aldrich and Dr. Moreno yesterday. The patient will be going home with IV vancomycin after dialysis for 2 weeks. This was confirmed by the case packer and sealer to be set up already and also renal dose oral Cipro times 4 weeks. The patient will follow up closely with Dr. Aldrich, Dr. Villalpando and Dr. Moreno. The patient at this time will be going home on aspirin and Plavix for his peripheral vascular disease. However, there was a question whether he has atrial fibrillation. We are still waiting to interrogate his loop recorder. If so, I have already discussed with cardiology. Then we will stop his aspirin and put him on renal-dose Eliquis instead. The patient was seen and examined today. It took 32 minutes total to discharge this patient. CONDITION ON DISCHARGE: Stable. DISCHARGE MEDICATIONS: Please see medication reconciliation form. EVAN OCONNOR M.D. Job#: [id number]
--- NOTE | 2018-01-13 17:36 | Progress Note ---
DATE: January 13, 2018 CARDIOLOGY PROGRESS NOTE SUBJECTIVE: The patient denies chest pain or shortness of breath. OBJECTIVE VITAL SIGNS: Temperature 98.5 degrees, pulse 64, respiratory rate 18, blood pressure 138/73, oxygen saturation 100% on room air. GENERAL: Awake, alert, in no acute distress. LUNGS: Clear to auscultation bilaterally. No wheezes or crackles. CARDIOVASCULAR: Normal rate, regular rhythm. No murmur. Normal S1 and S2. ABDOMEN: Soft, nontender. EXTREMITIES: No edema. CARDIAC MEDICATIONS 1. Plavix 75 mg p.o. daily. 2. Nifedipine 30 mg p.o. nightly. 3. Aspirin 81 mg p.o. daily. 4. Carvedilol 3.125 mg p.o. b.i.d. LABS: CRP 48.9, ESR 81. TELEMETRY: Normal sinus rhythm. Loop recorder interrogation with sinus bradycardia with PVCs. No atrial fibrillation was recorded. IMPRESSION 1. Right foot wound with suspected osteomyelitis. 2. End-stage renal disease, on hemodialysis. 3. Peripheral arterial disease with occlusion of the anterior and posterior tibial arteries as well as the peroneal, status post atherectomy and secondary thrombectomy of the right peroneal artery with resulting flow to the plantar vessels. 4. Hypertension. RECOMMENDATIONS: Continue current cardiac medications. IV antibiotics per infectious disease. Wound care per podiatry. Monitor wound for healing. Thank you for this consult. We will continue to follow. Job#: [id number] GH CHUCK
== END 2018-01-13 14:11 | disposition home or self-care (01) | DRG 270 ==
LOC: ER 13:29 → ERHOLD 17:15 → MED/SURG2 21:32
PROVIDERS: ADMIT Internal Medicine; ATTEND Internal Medicine
PROC: 5A1D70Z Performance of Urinary Filtration, Intermittent, Less than 6 Hours Per Day (ICD-10-PCS; 2018-01-09)
PROC: 04CT3ZZ Extirpation of Matter from Right Peroneal Artery, Percutaneous Approach (ICD-10-PCS; principal; 2018-01-11)
PROC: 047T3ZZ Dilation of Right Peroneal Artery, Percutaneous Approach (ICD-10-PCS; 2018-01-11)
PROC: B41D1ZZ Fluoroscopy of Aorta and Bilateral Lower Extremity Arteries using Low Osmolar Contrast (ICD-10-PCS; 2018-01-11)
DX: I70.235 Atherosclerosis of native arteries of right leg with ulceration of other part of foot (principal); N18.6 End stage renal disease; M86.671 Other chronic osteomyelitis, right ankle and foot; I12.0 Hypertensive chronic kidney disease with stage 5 chronic kidney disease or end stage renal disease; N25.81 Secondary hyperparathyroidism of renal origin; L03.115 Cellulitis of right lower limb; B95.2 Enterococcus as the cause of diseases classified elsewhere; B96.1 Klebsiella pneumoniae [K. pneumoniae] as the cause of diseases classified elsewhere; B96.89 Other specified bacterial agents as the cause of diseases classified elsewhere; Z99.2 Dependence on renal dialysis; Z89.421 Acquired absence of other right toe(s); D63.1 Anemia in chronic kidney disease; I48.91 Unspecified atrial fibrillation; Z79.82 Long term (current) use of aspirin
CPT/HCPCS: 36140; 36415; 37232; 71045; 75625; 75710; 77002; 80048; 80053; 80061; 81001; 82550; 82553; 82948; 83605; 83735; 83880; 84100; 84484; 85025; 85610; 85651; 85730; 86140; 86704; 86705; 86706; 87040; 87071; 87086; 87186; 87205; 87340; 92924; 93005; 93306; 93925; 99284; C1769; J0692; J1644; J2001; J2250; J2543; J3370; J7030; Q9967

== ENCOUNTER 2018-08-12 09:23 | Emergency (ER) | payer MEDICARE ==
[~2018-08-12] VITALS: Ht 188 cm; Wt 91.2 kg
[~2018-08-12 09:23] MED LIST: ALLOPURINOL100 MG PO; AMOX TR-K CLV1 EAC1 PO; ASPIR 8181 MG PO; CIPRO500 MG PO; COREG3.125 MG PO; NIFEDIPINE ER30 M1 PO; NORTHERA PO; PANTOPRAZOLE SO40 MG PO; PLAVIX75 MG PO; RENA-VITE TABL0.8 MG PO; RENVELA800 MG PO
--- OUTSIDE RECORDS SUMMARY | 2018-08-12 09:25 | XMS REPORT | Continuity of Care Document ---
Author Author [facility] Interface Address Unknown Phone Unavailable Problems Problem Status Onset Date Classification Date Reported Comments Source I95.1 G20 Active 09/25/2017 [facility] ORTHOSTATIC HYPOTENSION Active [facility] Medications Medication Details Route Status Patient Instructions Ordering Provider Order Date Source Allergies, Adverse Reactions, Alerts Substance Category Reaction Severity Reaction type Status Date Reported Comments Source Immunizations Immunization Date Given Site Status Last Updated Comments Source Results Order Name Results Value Reference Range Date Interpretation Comments Source Brain scan SPECT NM Brain scan SPECT NM EXAM: NM Brain Imaging SPECT DATE: 10/07/2017 7:40 AM [employer] SUPERVISOR INDICATION: Parkinson's Disease; Orthostatic Hypotension COMPARISON: None TECHNIQUE: After intravenous administration of 5 mCi of I-123 Ioflupane, delayed SPECT images of the head were obtained at 4 hours post injection. FINDINGS: Marked decreased tracer uptake in the bilateral putamina is seen. Moderate decreased tracer uptake in the right caudate is also noted. Tracer uptake in the left caudate is relatively maintained. The right striatum contributes 43% and the left striatum 57% of the remaining dopamine transporters function. The remainder of tracer distribution in background brain parenchyma is within normal limits. 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 10/07/2017 - - This report was dictated by a Cracking Still Operator/Fellow. I have personally reviewed the images as well as the Resident's interpretation and agree with the findings. Read by: Cele Rader MD Resident: Cele Rader MD Dictated Date/time: 10/07/17 15:23 Electronically Signed by: Nehal Villar MD 10/07/17 16:43 FINAL REPORT [facility] Vital Signs Vital Sign Value Date Comments Source Encounters Location Location Details Encounter Type Encounter Number Reason For Visit Attending Provider ADM Date DC Date Status Source Procedures Procedure Code Date Perfomer Comments Source
[2018-08-12] MEDS ORDERED: ASPIRIN 81 MG CHEW TAB PO ONE (10:45)
[2018-08-12 11:12] LABS: BASOPHILS % 0.4 % (0.0-1.0); EOSINOPHILS # (AUTO) 0.1 (0.0-0.4); EOSINOPHILS % 1.5 % (0.0-6.0); HEMATOCRIT 37.2 % (38.2-49.6); HEMOGLOBIN 12.2 g/dL (14.0-18.0); LYMPHOCYTES # (AUTO) 1.6 (1.0-3.2); LYMPHOCYTES % 29.4 % (18.0-39.1); MEAN CORPUSCULAR HEMOGLOBIN 25.9 pg (28-32); MEAN CORPUSCULAR HGB CONC 32.8 g/dL (31-35); MONOCYTES # (AUTO) 0.6 (0.2-0.8); MONOCYTES % 10.5 % (4.4-11.3); NEUTROPHILS # (AUTO) 3.2 (2.1-6.9); NEUTROPHILS % 57.6 % (38.7-80.0); PLATELET COUNT 219 x10e3/uL (140-360); RED BLOOD COUNT 4.71 x10e6/uL (4.3-5.7); RED CELL DISTRIBUTION WIDTH 17.1 % (11.7-14.4)
[2018-08-12 11:29] LABS: ALBUMIN 2.5 g/dL (3.5-5.0); ALBUMIN/GLOBULIN RATIO 0.4 (0.8-2.0); ANION GAP 13.3 mmol/L (8-16); CREATININE, SERUM 3.68 mg/dL (0.72-1.25); POTASSIUM 3.3 mmol/L (3.5-5.1)
[2018-08-12 11:36] LABS: CREATINE KINASE MB 2.2 ng/mL (0-5.0)
[2018-08-12] MEDS ORDERED: ONDANSETRON HCL INJ 2 MG/ML VIAL IV ONE (12:45)
[2018-08-12] MEDS ORDERED: MORPHINE SULFATE INJ 4 MG/ML INJ IV ONE (12:45)
--- NOTE | 2018-08-12 15:41 | Diagnostic Imaging Report ---
LEFT FEMUR - 5 VIEWS HISTORY: Pain, fall COMPARISON: None available. FINDINGS: Overlying artifacts, partially limit bone detail. Positioning further limits evaluation in the region of the left hip and knee. Bones: No acute displaced fracture. Soft tissues: The soft tissues appear unremarkable. IMPRESSION: 1. No acute radiographic abnormality. 2. If pain localizes to the hip or knee region, recommend routine radiographs of the area of concern when feasible. Signed by: Dr. Jeevan Robin D.O., M.M.M. on 08/12/2018 3:37 PM
--- NOTE | 2018-08-12 15:42 | Diagnostic Imaging Report ---
RIGHT FEMUR - 4 IMAGES HISTORY: Pain, after fall COMPARISON: None available. FINDINGS: Overlying artifacts and bone demineralization partially limit bone detail. Bones: No acute displaced fracture. Osseous alignment is within normal limits. Joints: Moderate degenerative changes of the right hip and mild lateral compartment predominant of the knee. Soft tissues: Some of the osseous structures are partially obscured by stool and overlying bowel gas. IMPRESSION: No acute radiographic abnormality. Signed by: Dr. Jeevan Robin D.O., M.M.M. on 08/12/2018 3:39 PM
[2018-08-12 18:06] VITALS: BP 174/95
== END 2018-08-12 17:50 | disposition home or self-care (01) ==
LOC: ER 09:23
DX: M25.552 Pain in left hip (principal); M25.551 Pain in right hip; I10 Essential (primary) hypertension; E11.9 Type 2 diabetes mellitus without complications; I51.9 Heart disease, unspecified; N28.9 Disorder of kidney and ureter, unspecified; Z87.891 Personal history of nicotine dependence
CPT/HCPCS: 36415; 73552 ×2; 80053; 82550; 82553; 84484; 85025; 99284; J2270; J2405